=== PATIENT | female | born 1990 | race Caucasian/White ===

== ENCOUNTER 2022-06-21 05:43 | Day surgery (SDC) | payer BC ==
[2022-06-21] MEDS ORDERED: Lactated Ringers 1,000 ML IV SCH (06:30)
[2022-06-21] MEDS ORDERED: Xylocaine-Mpf 2% 5 Ml Vial ONE (06:59)
[2022-06-21] MEDS ORDERED: Versed 2 MG/2 ML Injection ONE (07:00)
[2022-06-21] MEDS ORDERED: DIPRIVAN 200 MG/20 ML IV ONE ×2 (07:00→07:47)
[2022-06-21 08:31] VITALS: BP 109/69; PULSE 70; O2SAT 100
--- NOTE | 2022-06-21 08:56 | OP ---
SURGERY DATE/TIME: 06/21/2022 0733 PREOPERATIVE DIAGNOSES: 1) Family history of colon cancer. 2) Change in bowel habits. POSTOPERATIVE DIAGNOSIS: Normal colon. PROCEDURE: Colonoscopy. SURGEON: Robby Carbajal M.D. ANESTHESIA: MAC by Alex Samuel CRNA. ESTIMATED BLOOD LOSS: None. SPECIMENS: None. DESCRIPTION OF PROCEDURE: After informed written consent was obtained, the patient was taken to the endoscopy suite. Anesthesia was titrated to desired level of consciousness and she was placed in left lateral decubitus position. Digital rectal exam showed normal sphincter tone and no internal lesions. The scope was inserted into the rectum and sequentially the entire colonic mucosa was traversed. The level of cecum was reached and verified with direct visualization of the ileocecal valve. Upon withdrawal careful mucosal inspection revealed no gross abnormalities. Prior to withdrawal retroflexion was performed and showed no internal lesions. Prep was noted to be good. The scope was removed and the patient was transferred to the recovery room in good condition.
== END 2022-06-21 08:45 | disposition home or self-care (01) ==
LOC: SDC 05:43
PROVIDERS: ATTEND Family Medicine
DX: R19.4 Change in bowel habit (principal); Z80.0 Family history of malignant neoplasm of digestive organs
CPT/HCPCS: 81025; J2250; J2704